=== PATIENT | female | born 1945 | race Caucasian/White ===

== ENCOUNTER 2018-10-29 15:29 | Emergency (ER) | payer MEDICARE, OTHER ==
[~2018-10-29] VITALS: Ht 165.1 cm; Wt 93.0 kg
[2018-10-29] MEDS ORDERED: AMLODIPINE5 MG PO (15:46)
[2018-10-29] MEDS ORDERED: HYDROCHLOROT25 MG PO (15:47)
[2018-10-29] MEDS ORDERED: LISINOPRIL20 MG PO (15:47)
[2018-10-29] MEDS ORDERED: METOPROL TAR25 MG PO (15:47)
[2018-10-29] MEDS ORDERED: NAPROXEN250 MG PO (15:48)
[2018-10-29] MEDS ORDERED: CYCLOBENZAPR5 MG PO (15:49)
[2018-10-29 18:25] VITALS: BP 148/70
== END 2018-10-29 18:25 | disposition home or self-care (01) ==
LOC: ED 15:29
DX: M25.511 Pain in right shoulder (principal); I10 Essential (primary) hypertension; M19.90 Unspecified osteoarthritis, unspecified site